=== PATIENT | male | born 1965 | race Caucasian/White ===

== ENCOUNTER 2023-11-29 05:13 | Inpatient (IN) | payer SELFPAY ==
[~2023-11-29] VITALS: Ht 182.9 cm; Wt 105.1 kg
[2023-11-29] VITALS (7 sets, daily range): BP systolic 98–128; BP diastolic 46–68; PULSE 74–85; RESP 12–16; TEMP 96.9–97.1; O2SAT 92–95
[2023-11-29 06:38] LABS: Hematocrit 18.2 % (41.0-53.0); Mean Corpuscular Hemoglobin 41.2 pg (28.0-32.0); Mean Corpuscular Volume 111.6 fL (80.0-100.0); Red Blood Cells 1.63 10^6/uL (4.5-5.90); Red Cell Distribution Width 19.2 % (11.8-14.3); White Blood Cell 7.2 10^3/uL (4.4-10.8)
[2023-11-29 06:41] LABS: Alkaline Phosphatase 111 U/L (46-116); Calcium 8.8 mg/dL (8.7-10.4); Chloride 85 mmol/L (98-107)
[2023-11-29 06:42] LABS: Bilirubin, Total > 35.0 mg/dL (0.2-1.0)
[2023-11-29 06:46] LABS: Mean Corpuscular Hgb Conc. 36.9 g/dL (32.0-36.0)
[2023-11-29 06:46] LABS: Urine Amorphous Crystal FEW /hpf (None Seen); Urine Bacteria FEW /hpf (None Seen); Urine Blood Negative /uL (Negative); Urine Clarity HAZY (Clear); Urine Color Brown (Yellow); Urine Hyaline Cast FEW /lpf (0 - 2); Urine Mucus FEW (None Seen); Urine Protein, UAD Negative (Negative); Urine Specific Gravity 1.012 (1.001-1.035); Urine WBC 3 /hpf (0 - 3); Urine pH 5.5 (5.0-8.0)
[2023-11-29 06:49] LABS: Alanine Aminotransferase 57 U/L (7-40); Albumin 2.9 g/dL (3.2-4.8); Anion Gap 10 (5-15); Aspartate Aminotransferase 54 U/L (13-40); BUN/Creatinine Ratio 26.6 (10.0-20.0); Blood Urea Nitrogen 37 mg/dL (9-23); Carbon Dioxide 21 mmol/L (20-30); Glucose 103 mg/dL (74-106); INR 2.23 (0.9-1.15); Lipase 90 U/L (12-53); Magnesium 2.2 mg/dL (1.6-2.6); Partial Thromboplastin Time 46.7 SEC (24.5-34.5); Prothrombin Time 22.2 sec (9.3-11.8); Total Protein 6.3 g/dL (5.7-8.2)
[2023-11-29 06:53] LABS: Sodium 116 mmol/L (136-145)
[2023-11-29 06:54] LABS: Hemoglobin 6.7 g/dL (13.5-17.5)
[2023-11-29 06:56] LABS: Basophils % (manual) 0 (0.0-2.0); Blast Cells 0; Metamyelocytes % 0; Myelocytes % 0; Promyelocytes % 0; Reactive Lymphocytes 0
[2023-11-29] MEDS: SODIUM CHLORIDE 0.9% 1,000 ML IV ONE (07:00)
[2023-11-29 07:25] LABS: Folate (Folic Acid) 9.98 ng/mL (>5.38)
[2023-11-29 07:38] LABS: Band Neutrophils % (manual) 2; Eosinophils % (manual) 9 (0-7); Lymphocytes % (manual) 9 (10.0-50.0); Monocytes % (manual) 18 (0-12); Platelet Estimate Decreased
[2023-11-29 07:40] LABS: Hypochromia Slight; Macrocytosis Slight
[2023-11-29] MEDS: CIPROFLOXACIN 400MG/200ML 200 ML IV ONE (07:42)
[2023-11-29] MEDS: VANCOMYCIN 1GM/200ML 200 ML IV ONE (07:42)
[2023-11-29] MEDS ORDERED: ONDANSETRON HCL 4 MG/2 ML VIAL IV PRN (09:00)
[2023-11-29] MEDS ORDERED: ACETAMINOPHEN 325 MG TAB PO PRN (09:00)
[2023-11-29] MEDS ORDERED: HYDROmorphone HCL 2 MG/ML VL/or syr IV PRN (09:00)
[2023-11-29] MEDS ORDERED: DOCUSATE SOD 100 MG CAP PO PRN (09:00)
[2023-11-29] MEDS ORDERED: HYDROcodone-ACET 5/325MG TAB PO PRN (09:00)
[2023-11-29 09:26] LABS: Creatinine, Urine 95.56 mg/dL (30.0-125.0)
[2023-11-29 09:29] LABS: Chloride 87 mmol/L (98-107)
[2023-11-29 09:36] LABS: Anion Gap 8 (5-15); Blood Urea Nitrogen 29 mg/dL (9-23); Carbon Dioxide 21 mmol/L (20-30); Glucose 108 mg/dL (74-106)
[2023-11-29 09:41] LABS: Sodium 116 mmol/L (136-145)
[2023-11-29] MEDS: SODIUM CHL 3% 500 ML IV ONE ×2 (10:13→15:30)
[2023-11-29] MEDS: FUROSEMIDE 40 MG/4 ML VIAL IV ONE ×2 (10:39→15:36)
[2023-11-29] MEDS: PANTOPRAZOLE 40 MG/10 ML VIAL INJ IV SCH (10:42)
[2023-11-29] MEDS: THIAMINE HCL 100 MG TAB PO SCH (10:43)
[2023-11-29] MEDS: FOLIC ACID 1 MG TAB PO SCH (10:43)
[2023-11-29] MEDS: predniSONE 20 MG TAB PO SCH (10:43)
[2023-11-29] MEDS: PIPERACILLIN-TAZO 4.5GM 100 ML IV ONE (11:35)
[2023-11-29 13:54] LABS: Calcium 8.5 mg/dL (8.7-10.4)
[2023-11-29 13:57] LABS: Amphetamine Screen, Urine Neg (NEGATIVE); Barbiturate Scree,Urine Neg (NEGATIVE); Benzodiazephine Screen, Urine Neg (NEGATIVE); Cocaine Screen, Urine Neg (NEGATIVE)
[2023-11-29 13:58] LABS: Cannabinoid Screen, Urine Pos (NEGATIVE); Opiate Scree,Urine Neg (NEGATIVE); Phencyclidine Screen, Urine Neg (NEGATIVE)
[2023-11-29 14:04] LABS: Anion Gap 7 (5-15); BUN/Creatinine Ratio 20.5 (10.0-20.0); Blood Urea Nitrogen 27 mg/dL (9-23); Carbon Dioxide 21 mmol/L (20-30); Chloride 88 mmol/L (98-107); Glucose 115 mg/dL (74-106); Potassium 4.1 mmol/L (3.5-5.1)
[2023-11-29 14:11] LABS: Sodium 116 mmol/L (136-145)
[2023-11-29] MEDS: SODIUM CHLOR 0.9% PF (SALINE LOCK) 10ML VIAL/SYR IV SCH (14:28)
[2023-11-29 14:39] LABS: Blood Alcohol < 3.0 mg/dL (<10)
[2023-11-29] MEDS ORDERED: MIDODRINE HCL 10 MG TAB PO SCH (14:45)
[2023-11-29 15:16] LABS: Chloride 89 mmol/L (98-107); Potassium 4.1 mmol/L (3.5-5.1)
[2023-11-29 15:18] LABS: Calcium 8.9 mg/dL (8.5-10.1)
[2023-11-29 15:28] LABS: Anion Gap 7 (5-15); BUN/Creatinine Ratio 19.5 (10.0-20.0); Blood Urea Nitrogen 25 mg/dL (9-23); Carbon Dioxide 21 mmol/L (20-30); Glucose 114 mg/dL (74-106)
[2023-11-29 15:37] LABS: Sodium 117 mmol/L (136-145)
[2023-11-29] MEDS: ALBUMIN 25% 100 ML IV SCH (15:37)
[2023-11-29 18:55] LABS: Basophils # (auto) 0 10 ^3/uL (0-0.2); Eosinophils # (auto) 0.1 10 ^3/uL (0-0.8)
[2023-11-29 18:57] LABS: Basophils % (auto) 0.1 % (0.0-2.0)
[2023-11-29 19:10] LABS: Chloride 88 mmol/L (98-107); Potassium 4.1 mmol/L (3.5-5.1)
[2023-11-29 19:18] LABS: Lymphocytes # (auto) 0.3 10 ^3/uL (0.4-5.4); Neutrophils # (auto) 5.7 10 ^3/uL (1.6-8.6); White Blood Cell 6.4 10^3/uL (4.4-10.8)
[2023-11-29 19:19] LABS: Eosinophils % (auto) 1.2 % (0.0-7.0); Hematocrit 19.1 % (41.0-53.0); Mean Corpuscular Hemoglobin 38.5 pg (28.0-32.0); Mean Corpuscular Volume 105.6 fL (80.0-100.0); Monocytes # (auto) 0.4 10 ^3/uL (0-1.3); Monocytes % (auto) 5.7 % (0.0-12.0); Red Blood Cells 1.81 10^6/uL (4.5-5.90)
[2023-11-29 19:21] LABS: Anion Gap 8 (5-15); BUN/Creatinine Ratio 21.6 (10.0-20.0); Blood Urea Nitrogen 27 mg/dL (9-23); Calcium 8.8 mg/dL (8.7-10.4); Carbon Dioxide 21 mmol/L (20-30); Glucose 114 mg/dL (74-106)
[2023-11-29 19:42] LABS: Mean Corpuscular Hgb Conc. 36.5 g/dL (32.0-36.0); Red Cell Distribution Width 24.3 % (11.8-14.3); Sodium 117 mmol/L (136-145)
[2023-11-29 20:12] LABS: Anisocytosis Moderate; Macrocytosis Moderate; Platelet Estimate Decreased
[2023-11-29] MEDS: phytonadione 10 MG in SODIUM CHL 0.9% 50 ML IV ONE (20:43)
[2023-11-29] MEDS: SODIUM CHL 3% 120 ML IV ONE (21:10)
[2023-11-29 21:39] LABS: Chloride 89 mmol/L (98-107); Potassium 4.1 mmol/L (3.5-5.1)
[2023-11-29 21:57] LABS: Anion Gap 10 (5-15); BUN/Creatinine Ratio 19.4 (10.0-20.0); Blood Urea Nitrogen 26 mg/dL (9-23); Carbon Dioxide 19 mmol/L (20-30); Glucose 135 mg/dL (74-106)
[2023-11-29 22:14] LABS: Sodium 118 mmol/L (136-145)
[2023-11-29] MEDS: methylPREDNISolone SOD SUCC 40 MG/ML VL IV SCH (22:35)
[2023-11-29] MEDS: MIDODRINE HCL 10 MG TAB PO PRN (22:36)
[2023-11-29] MEDS: OCTREOTIDE ACETATE 100 MCG/ML VL SUBCUT SCH (22:36)
[2023-11-30 03:59] LABS: Chloride 89 mmol/L (98-107); Potassium 4.4 mmol/L (3.5-5.1)
[2023-11-30 04:04] LABS: Anion Gap 9 (5-15); Carbon Dioxide 21 mmol/L (20-30)
[2023-11-30 04:15] LABS: BUN/Creatinine Ratio 21.4 (10.0-20.0); Blood Urea Nitrogen 28 mg/dL (9-23); Glucose 138 mg/dL (74-106)
[2023-11-30 04:29] LABS: Sodium 119 mmol/L (136-145)
[2023-11-30 05:36] VITALS: PULSE 81; RESP 17; O2SAT 95
[2023-11-30] MEDS: NOREPINEPHRINE 8 MG/250ML KIT 250 ML IV ONE (06:41)
[2023-11-30] MEDS: NOREPINEPHRINE 8 MG/250ML KIT 250 ML IV SCH (06:54)
[2023-11-30 08:41] LABS: Chloride 91 mmol/L (98-107); Potassium 4.8 mmol/L (3.5-5.1)
[2023-11-30 08:54] LABS: Basophils # (auto) 0 10 ^3/uL (0-0.2); Basophils % (auto) 0.4 % (0.0-2.0); Eosinophils # (auto) 0 10 ^3/uL (0-0.8); Eosinophils % (auto) 0.3 % (0.0-7.0); Hematocrit 19.6 % (41.0-53.0); Lymphocytes # (auto) 0.4 10 ^3/uL (0.4-5.4); Lymphocytes % (auto) 4.5 % (10.0-50.0); Mean Corpuscular Hemoglobin 38.2 pg (28.0-32.0); Mean Corpuscular Hgb Conc. 35.8 g/dL (32.0-36.0); Mean Corpuscular Volume 106.5 fL (80.0-100.0); Monocytes # (auto) 0.4 10 ^3/uL (0-1.3); Monocytes % (auto) 4.9 % (0.0-12.0); Neutrophils # (auto) 7.7 10 ^3/uL (1.6-8.6); Neutrophils % (auto) 89.9 % (37.0-80.0); Nucleated Red Blood Cells % 0.1 %; Red Blood Cells 1.84 10^6/uL (4.5-5.90); Red Cell Distribution Width 24.5 % (11.8-14.3); White Blood Cell 8.5 10^3/uL (4.4-10.8)
[2023-11-30 09:10] LABS: BUN/Creatinine Ratio 19.7 (10.0-20.0); Blood Urea Nitrogen 28 mg/dL (9-23); Calcium 9.1 mg/dL (8.5-10.1); Carbon Dioxide 21 mmol/L (20-30); Glucose 128 mg/dL (74-106)
[2023-11-30 09:12] LABS: Anion Gap 7 (5-15); Sodium 119 mmol/L (136-145)
[2023-11-30 09:44] LABS: Anisocytosis Slight; Macrocytosis Moderate; Platelet Estimate Decreased
[2023-11-30] MEDS: FOLIC ACID 1 MG TAB PO SCH (10:00)
[2023-11-30] MEDS: THIAMINE HCL 100 MG TAB PO SCH (10:00)
[2023-11-30 11:07] LABS: Base Excess -2.7 mmol/L (-2.0-2.0)
[2023-11-30] MEDS: ALBUMIN 25% 100 ML IV ONE (11:08)
[2023-11-30] MEDS: SODIUM CHL 3% 200 ML IV ONE (16:52)
[2023-11-30] MEDS: FUROSEMIDE 20 MG/2 ML VIAL IV ONE (17:06)
[2023-11-30] MEDS: LACTULOSE 20Gm/30ML SOLN PO SCH (18:00)
[2023-11-30 19:30] VITALS: PULSE 94; RESP 16; O2SAT 95
[2023-11-30] MEDS: LIDOCAINE 1% (LOCAL ANESTH.) PF 5ml SDV ID ONE (20:00)
[2023-11-30] MEDS: SODIUM CHLOR 0.9% PF (SALINE LOCK) 10ML VIAL/SYR IV SCH (21:43)
[2023-11-30 22:35] VITALS: BP 115/50; PULSE 84; RESP 18; TEMP 97.9
[2023-11-30 23:05] VITALS: BP 115/50; PULSE 86; RESP 18; TEMP 97.8
[2023-12-01] VITALS (9 sets, daily range): BP systolic 102–137; BP diastolic 33–55; PULSE 80–94; RESP 12–16; TEMP 97.4–98.1; O2SAT 95–97
[2023-12-01 05:23] LABS: Basophils # (auto) 0 10 ^3/uL (0-0.2); Basophils % (auto) 0.1 % (0.0-2.0); Eosinophils # (auto) 0 10 ^3/uL (0-0.8); Lymphocytes # (auto) 0.4 10 ^3/uL (0.4-5.4); Monocytes # (auto) 1.9 10 ^3/uL (0-1.3); Nucleated Red Blood Cells % 0.2 %
[2023-12-01 05:26] LABS: Eosinophils % (auto) 0.1 % (0.0-7.0); Hematocrit 19.1 % (41.0-53.0); Lymphocytes % (auto) 2.7 % (10.0-50.0); Mean Corpuscular Hemoglobin 38.2 pg (28.0-32.0); Mean Corpuscular Hgb Conc. 36.2 g/dL (32.0-36.0); Mean Corpuscular Volume 105.7 fL (80.0-100.0); Monocytes % (auto) 14.1 % (0.0-12.0); Neutrophils # (auto) 11.1 10 ^3/uL (1.6-8.6); Red Blood Cells 1.81 10^6/uL (4.5-5.90); White Blood Cell 13.3 10^3/uL (4.4-10.8)
[2023-12-01 05:32] LABS: Alkaline Phosphatase 84 U/L (46-116); Calcium 8.2 mg/dL (8.7-10.4); Chloride 96 mmol/L (98-107); Potassium 4.7 mmol/L (3.5-5.1); Sodium 124 mmol/L (136-145)
[2023-12-01 05:43] LABS: Bilirubin, Total 36.1 mg/dL (0.2-1.0)
[2023-12-01 05:57] LABS: Alanine Aminotransferase 47 U/L (7-40); Albumin 3.1 g/dL (3.2-4.8); Anion Gap 8 (5-15); Aspartate Aminotransferase 49 U/L (13-40); BUN/Creatinine Ratio 21.5 (10.0-20.0); Blood Urea Nitrogen 35 mg/dL (9-23); Carbon Dioxide 20 mmol/L (20-30); Glucose 153 mg/dL (74-106); Red Cell Distribution Width 26.9 % (11.8-14.3); Total Protein 6.1 g/dL (5.7-8.2)
[2023-12-01 05:58] LABS: Hemoglobin 6.9 g/dL (13.5-17.5)
[2023-12-01 08:30] LABS: Platelet Estimate Decreased
[2023-12-01 08:31] LABS: Anisocytosis Moderate
[2023-12-01] MEDS: DOXYCYCLINE 100 MG TAB/CAP PO SCH (10:39)
[2023-12-01] MEDS: ALBUMIN 25% 100 ML IV ONE (10:40)
[2023-12-01] MEDS: FUROSEMIDE 100 MG/10ML VIAL IV ONE (12:12)
[2023-12-01] MEDS: PIPERACILLIN-TAZOB 3.375GM 100 ML IV SCH (15:47)
[2023-12-01 20:16] LABS: Hematocrit 22.2 % (41.0-53.0); Hemoglobin 7.8 g/dL (13.5-17.5)
[2023-12-02 04:49] LABS: Basophils # (auto) 0 10 ^3/uL (0-0.2); Basophils % (auto) 0.1 % (0.0-2.0); Eosinophils # (auto) 0 10 ^3/uL (0-0.8); Hematocrit 22.1 % (41.0-53.0); Hemoglobin 7.8 g/dL (13.5-17.5); Lymphocytes # (auto) 0.1 10 ^3/uL (0.4-5.4); Lymphocytes % (auto) 0.9 % (10.0-50.0); Mean Corpuscular Hemoglobin 35.5 pg (28.0-32.0); Mean Corpuscular Hgb Conc. 35.4 g/dL (32.0-36.0); Mean Corpuscular Volume 100.3 fL (80.0-100.0); Monocytes # (auto) 1.4 10 ^3/uL (0-1.3); Monocytes % (auto) 10.6 % (0.0-12.0); Neutrophils # (auto) 11.6 10 ^3/uL (1.6-8.6); Neutrophils % (auto) 88.4 % (37.0-80.0); Red Cell Distribution Width 25.3 % (11.8-14.3); White Blood Cell 13.1 10^3/uL (4.4-10.8)
[2023-12-02 05:09] LABS: Alkaline Phosphatase 84 U/L (46-116); Chloride 94 mmol/L (98-107); Potassium 4.3 mmol/L (3.5-5.1); Sodium 123 mmol/L (136-145)
[2023-12-02 05:20] LABS: Bilirubin, Total 38.1 mg/dL (0.2-1.0)
[2023-12-02 05:47] LABS: Alanine Aminotransferase 52 U/L (7-40); Albumin 3.2 g/dL (3.2-4.8); Anion Gap 7 (5-15); Aspartate Aminotransferase 58 U/L (13-40); BUN/Creatinine Ratio 23.1 (10.0-20.0); Blood Urea Nitrogen 40 mg/dL (9-23); Calcium 8.5 mg/dL (8.7-10.4); Carbon Dioxide 22 mmol/L (20-30); Glucose 145 mg/dL (74-106); Total Protein 6.2 g/dL (5.7-8.2)
[2023-12-02 07:45] VITALS: PULSE 78; RESP 16; O2SAT 94
[2023-12-02 09:25] LABS: Urine Bacteria NONE SEEN /hpf (None Seen); Urine Blood 3+ /uL (Negative); Urine Clarity HAZY (Clear); Urine Color Brown (Yellow); Urine Protein, UAD 1+ (Negative); Urine WBC 326 /hpf (0 - 3); Urine WBC Clumps PRESENT /hpf (None Seen); Urine pH 5.5 (5.0-8.0)
[2023-12-02 19:30] VITALS: PULSE 78; RESP 16; O2SAT 94
[2023-12-02] MEDS: phytonadione 10 MG in SODIUM CHL 0.9% 50 ML IV ONE (21:34)
[2023-12-02] MEDS: LACTULOSE 20Gm/30ML SOLN PO SCH (21:34)
[2023-12-02] MEDS: phytonadione 1 ML ONE (21:35)
[2023-12-03 04:42] VITALS: BP 118/43; PULSE 84; RESP 14; TEMP 97.6; O2SAT 95
[2023-12-03] MEDS: ALBUTEROL SULF 2.5 MG/0.5ML(0.5%) NEB SOLN NEB PRN (05:47)
[2023-12-03] MEDS: IPRATROPIUM BROM 0.5 MG/2.5ML INH SOL NEB PRN (05:48)
[2023-12-03 05:49] VITALS: PULSE 82; RESP 18; O2SAT 95
[2023-12-03 05:51] VITALS: PULSE 82; RESP 18; O2SAT 95
[2023-12-03 05:53] LABS: Chloride 95 mmol/L (98-107); Potassium 4.3 mmol/L (3.5-5.1); Sodium 125 mmol/L (136-145)
[2023-12-03 06:19] LABS: Basophils # (auto) 0 10 ^3/uL (0-0.2); Basophils % (auto) 0.1 % (0.0-2.0); Eosinophils # (auto) 0 10 ^3/uL (0-0.8); Hemoglobin 7.8 g/dL (13.5-17.5); Lymphocytes # (auto) 0.1 10 ^3/uL (0.4-5.4); Lymphocytes % (auto) 0.9 % (10.0-50.0)
[2023-12-03 06:22] LABS: Hematocrit 21.8 % (41.0-53.0); Mean Corpuscular Hemoglobin 36.2 pg (28.0-32.0); Mean Corpuscular Hgb Conc. 35.8 g/dL (32.0-36.0); Mean Corpuscular Volume 101.3 fL (80.0-100.0); Nucleated Red Blood Cells % 0.1 %; Red Blood Cells 2.16 10^6/uL (4.5-5.90); White Blood Cell 15.1 10^3/uL (4.4-10.8)
[2023-12-03 06:37] LABS: Red Cell Distribution Width 25.9 % (11.8-14.3)
[2023-12-03 07:09] LABS: Anion Gap 8 (5-15); BUN/Creatinine Ratio 28.8 (10.0-20.0); Blood Urea Nitrogen 45 mg/dL (9-23); Calcium 8.7 mg/dL (8.7-10.4); Carbon Dioxide 22 mmol/L (20-30); Glucose 134 mg/dL (74-106)
[2023-12-03 07:46] VITALS: PULSE 84; RESP 15; O2SAT 95
[2023-12-03 09:26] LABS: Target Cell FEW
[2023-12-03 09:27] LABS: Anisocytosis Moderate
[2023-12-03 09:37] LABS: Platelet Estimate Decrea
[2023-12-03] MEDS: methylPREDNISolone SOD SUCC 40 MG/ML VL IV SCH (09:54)
[2023-12-03] MEDS: FUROSEMIDE 100 MG/10ML VIAL IV ONE (10:09)
[2023-12-03 18:10] VITALS: PULSE 85; RESP 20; O2SAT 94
[2023-12-04] VITALS (76 sets, daily range): BP systolic 86–165; BP diastolic 30–99; PULSE 82–104; RESP 10–91; TEMP 94.8–97.5; O2SAT 78–99
[2023-12-04 05:06] LABS: Basophils # (auto) 0 10 ^3/uL (0-0.2); Eosinophils # (auto) 0 10 ^3/uL (0-0.8); Monocytes # (auto) 2.5 10 ^3/uL (0-1.3); Neutrophils % (auto) 84.3 % (37.0-80.0)
[2023-12-04 05:10] LABS: Basophils % (auto) 0.1 % (0.0-2.0); Eosinophils % (auto) 0.1 % (0.0-7.0); Lymphocytes # (auto) 0.1 10 ^3/uL (0.4-5.4); Lymphocytes % (auto) 0.8 % (10.0-50.0); Mean Corpuscular Hemoglobin 36.5 pg (28.0-32.0); Mean Corpuscular Hgb Conc. 35.4 g/dL (32.0-36.0); Monocytes % (auto) 14.7 % (0.0-12.0); Neutrophils # (auto) 14.2 10 ^3/uL (1.6-8.6); Nucleated Red Blood Cells % 0.1 %; Red Blood Cells 1.85 10^6/uL (4.5-5.90); White Blood Cell 16.8 10^3/uL (4.4-10.8)
[2023-12-04 05:13] LABS: Red Cell Distribution Width 25.4 % (11.8-14.3)
[2023-12-04 05:17] LABS: Hemoglobin 6.7 g/dL (13.5-17.5)
[2023-12-04 05:29] LABS: Chloride 99 mmol/L (98-107); Potassium 4.2 mmol/L (3.5-5.1); Sodium 129 mmol/L (136-145)
[2023-12-04 05:45] LABS: Anion Gap 8 (5-15); BUN/Creatinine Ratio 36.5 (10.0-20.0); Blood Urea Nitrogen 50 mg/dL (9-23); Calcium 7.8 mg/dL (8.7-10.4); Carbon Dioxide 22 mmol/L (20-30); Glucose 131 mg/dL (74-106)
[2023-12-04 06:00] LABS: INR 3.27 (0.9-1.15); Prothrombin Time 31.8 sec (9.3-11.8)
[2023-12-04 06:02] LABS: Partial Thromboplastin Time 76.6 SEC (24.5-34.5)
[2023-12-04 07:05] LABS: Anisocytosis Moderate; Macrocytosis Moderate; Platelet Estimate Decreased; Target Cell FEW
[2023-12-04] MEDS: VASOPRESSIN 20 UNITS in SODIUM CHL 0.9% 99 ML IV SCH (10:25)
[2023-12-04] MEDS: CEFEPIME 2GM/50ML NS 50 ML IV SCH (11:09)
[2023-12-04] MEDS: DOPamine 1600MCG/ML D5W 250 ML IV SCH (11:45)
[2023-12-04] MEDS: FUROSEMIDE 40 MG/4 ML VIAL IV ONE (13:54)
[2023-12-05] VITALS (105 sets, daily range): BP systolic 79–160; BP diastolic 24–76; PULSE 84–114; RESP 10–31; TEMP 94.8–98.4; O2SAT 84–100
[2023-12-05 04:20] LABS: Basophils # (auto) 0 10 ^3/uL (0-0.2); Basophils % (auto) 0.2 % (0.0-2.0); Eosinophils # (auto) 0 10 ^3/uL (0-0.8); Hemoglobin 7.3 g/dL (13.5-17.5); Monocytes # (auto) 1.7 10 ^3/uL (0-1.3); Nucleated Red Blood Cells % 0.1 %
[2023-12-05 04:23] LABS: Hematocrit 20.5 % (41.0-53.0); Lymphocytes # (auto) 0.2 10 ^3/uL (0.4-5.4); Mean Corpuscular Hgb Conc. 35.5 g/dL (32.0-36.0); Mean Corpuscular Volume 101.2 fL (80.0-100.0); Monocytes % (auto) 10.6 % (0.0-12.0); Neutrophils % (auto) 88.2 % (37.0-80.0); Red Blood Cells 2.02 10^6/uL (4.5-5.90); White Blood Cell 15.9 10^3/uL (4.4-10.8)
[2023-12-05 04:32] LABS: Red Cell Distribution Width 24.1 % (11.8-14.3)
[2023-12-05 04:35] LABS: INR 2.66 (0.9-1.15); Partial Thromboplastin Time 55.3 SEC (24.5-34.5); Prothrombin Time 26.2 sec (9.3-11.8)
[2023-12-05 05:12] LABS: Platelet Estimate Decreased
[2023-12-05 05:13] LABS: Anisocytosis Moderate
[2023-12-05 06:21] LABS: Chloride 98 mmol/L (98-107); Potassium 4.7 mmol/L (3.5-5.1); Sodium 129 mmol/L (136-145)
[2023-12-05 06:30] LABS: Alkaline Phosphatase 65 U/L (46-116)
[2023-12-05 06:55] LABS: Alanine Aminotransferase 65 U/L (7-40); Albumin 2.9 g/dL (3.2-4.8); Anion Gap 8 (5-15); Aspartate Aminotransferase 107 U/L (13-40); BUN/Creatinine Ratio 41.1 (10.0-20.0); Bilirubin, Total 43.1 mg/dL (0.2-1.0); Blood Urea Nitrogen 67 mg/dL (9-23); Calcium 8.5 mg/dL (8.7-10.4); Carbon Dioxide 23 mmol/L (20-30); Glucose 144 mg/dL (74-106); Phosphorus 4.9 mg/dL (2.4-5.1); Total Protein 5.5 g/dL (5.7-8.2)
[2023-12-05 08:06] LABS: Base Excess -1.1 mmol/L (-2.0-2.0)
[2023-12-05] MEDS: FUROSEMIDE 40 MG/4 ML VIAL ONE (18:12)
[2023-12-05] MEDS: FUROSEMIDE 40 MG/4 ML VIAL IV ONE (18:44)
[2023-12-05] MEDS: VASOPRESSIN 20 UNITS in SODIUM CHL 0.9% 99 ML IV SCH (18:44)
[2023-12-05] MEDS: ETOMIDATE (2MG/ML) 20ML VIAL IV ONE ×2 (19:27→19:34)
[2023-12-05] MEDS: SUCCINYLCHOLINE CHLORIDE 20 MG/ML 10ML VIAL IV ONE ×2 (19:35→20:20)
[2023-12-05] MEDS: fentaNYL Drip 2500mCg/250mlNS 250 ML IV ONE (19:41)
[2023-12-05] MEDS: MIDAZOLAM DRIP 50 mg/50mL 50 ML IV ONE (19:41)
[2023-12-05] MEDS: fentaNYL Drip 2500mCg/250mlNS 250 ML IV SCH (19:45)
[2023-12-05] MEDS: MIDAZOLAM DRIP 50 mg/50mL 50 ML IV SCH (19:45)
[2023-12-05] MEDS: ROCURONIUM 10MG/ML 10ML VIAL IV ONE (20:20)
[2023-12-05 21:15] LABS: Base Excess -5.4 mmol/L (-2.0-2.0)
[2023-12-05] MEDS: FUROSEMIDE 20 MG/2 ML VIAL IV ONE (21:20)
[2023-12-05] MEDS: methylPREDNISolone SOD SUCC 40 MG/ML VL IV SCH (21:26)
[2023-12-06] VITALS (106 sets, daily range): BP systolic 57–140; BP diastolic 15–63; PULSE 92–110; RESP 10–27; TEMP 97.6–98.9; O2SAT 85–97
[2023-12-06] MEDS: PHENYLEPHRINE IV 250 ML IV SCH (01:04)
[2023-12-06 04:33] LABS: Hemoglobin 7.5 g/dL (13.5-17.5)
[2023-12-06 04:36] LABS: Hematocrit 22.6 % (41.0-53.0); Mean Corpuscular Hemoglobin 36.1 pg (28.0-32.0); Mean Corpuscular Hgb Conc. 33.2 g/dL (32.0-36.0); Mean Corpuscular Volume 108.9 fL (80.0-100.0); Red Blood Cells 2.07 10^6/uL (4.5-5.90); White Blood Cell 27.8 10^3/uL (4.4-10.8)
[2023-12-06 04:41] LABS: Red Cell Distribution Width 25.5 % (11.8-14.3)
[2023-12-06 04:43] LABS: Basophils % (manual) 0 (0.0-2.0); Blast Cells 0; Eosinophils % (manual) 0 (0-7); Metamyelocytes % 0; Myelocytes % 0; Promyelocytes % 0; Reactive Lymphocytes 0
[2023-12-06 05:06] LABS: Alkaline Phosphatase 72 U/L (46-116); Chloride 100 mmol/L (98-107); Sodium 130 mmol/L (136-145)
[2023-12-06 05:13] LABS: Alanine Aminotransferase 79 U/L (7-40); Albumin 2.9 g/dL (3.2-4.8); Anion Gap 11 (5-15); Aspartate Aminotransferase 142 U/L (13-40); BUN/Creatinine Ratio 34.4 (10.0-20.0); Calcium 8.5 mg/dL (8.7-10.4); Carbon Dioxide 19 mmol/L (20-30); Glucose 112 mg/dL (74-106); Total Protein 5.7 g/dL (5.7-8.2)
[2023-12-06 05:19] LABS: Bilirubin, Total 44.2 mg/dL (0.2-1.0)
[2023-12-06 06:07] LABS: Band Neutrophils % (manual) 5; Lymphocytes % (manual) 5 (10.0-50.0); Monocytes % (manual) 4 (0-12)
[2023-12-06 06:08] LABS: Anisocytosis Slight; Platelet Estimate Decreased
[2023-12-06 06:09] LABS: Macrocytosis Slight
[2023-12-06 06:25] LABS: Blood Urea Nitrogen 77 mg/dL (9-23)
[2023-12-06 06:27] LABS: Potassium 5.9 mmol/L (3.5-5.1)
[2023-12-06] MEDS: SODIUM ZIRCONIUM CYCL 10 GM PAK PO ONE ×2 (06:51→13:38)
[2023-12-06] MEDS: ALBUMIN 5% 250 ML IV ONE (06:52)
[2023-12-06 07:20] LABS: Base Excess -8.5 mmol/L (-2.0-2.0)
[2023-12-06] MEDS: PHENYLEPHRINE INJ 80 MG in SODIUM CHL 0.9% 242 ML IV SCH (09:00)
[2023-12-06] MEDS: NOREPINEPHRINE BITARTRATE 32 MG in SODIUM CHL 0.9% 218 ML IV SCH (09:00)
[2023-12-06] MEDS: NOREPINEPHRINE 8 MG/250ML KIT 250 ML IV ONE (10:08)
[2023-12-06] MEDS: PHENYLEPHRINE IV 250 ML IV ONE (10:08)
[2023-12-06] MEDS: EPINEPHrine HCL INJECTION 16 MG in D5W 5% 234 ML IV SCH (10:20)
[2023-12-06] MEDS ORDERED: SODIUM BICARBONATE 50ML VIAL 100 ML in SOD CHL 0.45% 1,000 ML IV SCH (11:45)
[2023-12-06] MEDS: CALCIUM GLUC 1,000mg/50ml-NS 50 ML IV ONE (13:38)
[2023-12-06] MEDS: InsuLIN REG 1unit/0.01ml Soln (100units/ml) IV ONE (13:39)
[2023-12-06] MEDS: DEXTROSE (50%) 50ML SYRG IV ONE (13:39)
[2023-12-06 16:17] LABS: Basophils # (auto) 0.1 10 ^3/uL (0-0.2); Basophils % (auto) 0.3 % (0.0-2.0); Eosinophils # (auto) 0 10 ^3/uL (0-0.8); Hematocrit 18.2 % (41.0-53.0); Lymphocytes # (auto) 0.4 10 ^3/uL (0.4-5.4); Lymphocytes % (auto) 1.8 % (10.0-50.0); Mean Corpuscular Hemoglobin 35.7 pg (28.0-32.0); Mean Corpuscular Hgb Conc. 33.1 g/dL (32.0-36.0); Mean Corpuscular Volume 107.6 fL (80.0-100.0); Monocytes # (auto) 2.2 10 ^3/uL (0-1.3); Monocytes % (auto) 10.5 % (0.0-12.0); Neutrophils # (auto) 17.9 10 ^3/uL (1.6-8.6); Neutrophils % (auto) 87.4 % (37.0-80.0); Nucleated Red Blood Cells % 1.8 %; Red Blood Cells 1.69 10^6/uL (4.5-5.90); White Blood Cell 20.5 10^3/uL (4.4-10.8)
[2023-12-06 16:21] LABS: Red Cell Distribution Width 25.9 % (11.8-14.3)
[2023-12-06 16:37] LABS: Alkaline Phosphatase 63 U/L (46-116); Chloride 102 mmol/L (98-107); Sodium 133 mmol/L (136-145)
[2023-12-06] MEDS: SODIUM BICARBONATE 50ML VIAL 100 ML in SOD CHL 0.45% 1,000 ML IV SCH (16:44)
[2023-12-06] MEDS: BUMETANIDE INJECTION 12.5 MG in GIVE UN-DILUTED 0 ML IV SCH (16:46)
[2023-12-06 16:49] LABS: Bilirubin, Total 36.7 mg/dL (0.2-1.0)
[2023-12-06 16:58] LABS: Alanine Aminotransferase 261 U/L (7-40); Albumin 2.6 g/dL (3.2-4.8); Anion Gap 13 (5-15); Aspartate Aminotransferase 712 U/L (13-40); BUN/Creatinine Ratio 27.9 (10.0-20.0); Carbon Dioxide 18 mmol/L (20-30); Glucose 80 mg/dL (74-106); Total Protein 4.9 g/dL (5.7-8.2)
[2023-12-06 17:21] LABS: Blood Urea Nitrogen 88 mg/dL (9-23); Potassium 5.6 mmol/L (3.5-5.1)
[2023-12-06 19:10] LABS: Platelet Estimate Decreased
[2023-12-06 19:11] LABS: Anisocytosis Moderate; Macrocytosis Moderate
[2023-12-06] MEDS: DOPamine 1600MCG/ML D5W 250 ML IV SCH (20:34)
[2023-12-06 21:43] LABS: Base Excess -12.2 mmol/L (-2.0-2.0)
[2023-12-06] MEDS: SODIUM BICARBONATE 8.4 % INJ 50ML VIAL IV ONE (22:54)
[2023-12-07] VITALS (36 sets, daily range): BP systolic 58–104; BP diastolic 15–49; PULSE 77–101; RESP 20–28; TEMP 97.6–98.6; O2SAT 40–90
[2023-12-07] MEDS: PHENYLEPHRINE IV 250 ML IV ONE (01:26)
[2023-12-07] MEDS: PHENYLEPHRINE HCL 10 MG/ML VL ONE (01:26)
[2023-12-07] MEDS: DEXTROSE (50%) 50ML SYRG IV ONE ×2 (01:41→07:39)
[2023-12-07] MEDS: DEXTROSE 50% SYRINGE 50 ML IV ONE (01:43)
[2023-12-07 04:05] LABS: Hematocrit 19.6 % (41.0-53.0); Mean Corpuscular Hemoglobin 35.3 pg (28.0-32.0); Mean Corpuscular Hgb Conc. 33.6 g/dL (32.0-36.0); Mean Corpuscular Volume 105.1 fL (80.0-100.0); Red Blood Cells 1.87 10^6/uL (4.5-5.90); White Blood Cell 16.8 10^3/uL (4.4-10.8)
[2023-12-07 04:16] LABS: Red Cell Distribution Width 22.2 % (11.8-14.3)
[2023-12-07 04:18] LABS: Hemoglobin 6.6 g/dL (13.5-17.5)
[2023-12-07 04:19] LABS: Basophils % (manual) 0 (0.0-2.0); Blast Cells 0; Eosinophils % (manual) 0 (0-7); Metamyelocytes % 0; Myelocytes % 0; Promyelocytes % 0; Reactive Lymphocytes 0
[2023-12-07 04:37] LABS: Chloride 102 mmol/L (98-107); Sodium 132 mmol/L (136-145)
[2023-12-07 04:41] LABS: Calcium 7.6 mg/dL (8.7-10.4)
[2023-12-07 04:46] LABS: Alkaline Phosphatase 78 U/L (46-116)
[2023-12-07 04:58] LABS: Albumin 2.3 g/dL (3.2-4.8); BUN/Creatinine Ratio 19.8 (10.0-20.0); Glucose 105 mg/dL (74-106); Total Protein 4.4 g/dL (5.7-8.2)
[2023-12-07 05:21] LABS: Alanine Aminotransferase 2035 U/L (7-40); Aspartate Aminotransferase > 6000 U/L (13-40); Blood Urea Nitrogen 77 mg/dL (9-23)
[2023-12-07 05:22] LABS: Potassium 5.9 mmol/L (3.5-5.1)
[2023-12-07 05:40] LABS: Anion Gap 12 (5-15); Carbon Dioxide 18 mmol/L (20-30)
[2023-12-07] MEDS: SODIUM ZIRCONIUM CYCL 10 GM PAK PO ONE (06:45)
[2023-12-07 06:58] LABS: Band Neutrophils % (manual) 5; Lymphocytes % (manual) 12 (10.0-50.0); Monocytes % (manual) 2 (0-12)
[2023-12-07 07:00] LABS: Platelet Estimate Decreased
[2023-12-07] MEDS: SODIUM BICARBONATE 8.4% INJ 50ML SYRINGE IV ONE (07:19)
[2023-12-07] MEDS: CALCIUM GLUC 1,000mg/50ml-NS 50 ML IV ONE (07:20)
[2023-12-07] MEDS: InsuLIN REG 1unit/0.01ml Soln (100units/ml) IV ONE (07:41)
[2023-12-07] MEDS ORDERED: DOPamine 1600mCg/ml 400MG/250ml NSorD5 KIT/BAG IV ONE (10:55)
[2023-12-07] MEDS ORDERED: D5W 5% 100 ML BAG IV ONE (10:55)
[2023-12-07] MEDS ORDERED: CALCIUM CHLOR(10%) 100MG/ML 10ML SYRINGE IV ONE (10:55)
== END 2023-12-07 10:56 | DRG 871 ==
LOC: ER 05:13 → EDBD 05:13 → TELE 09:06 → ICU WEST 12-04 05:05 → TELE 12-04 05:11
PROVIDERS: ADMIT Internal Medicine; ATTEND Nurse Practitioner Acute Care
PROC: 30233N1 Transfusion of Nonautologous Red Blood Cells into Peripheral Vein, Percutaneous Approach (ICD-10-PCS; 2023-11-29)
PROC: 02HV33Z Insertion of Infusion Device into Superior Vena Cava, Percutaneous Approach (ICD-10-PCS; 2023-11-30)
PROC: 30233P1 Transfusion of Nonautologous Frozen Red Cells into Peripheral Vein, Percutaneous Approach (ICD-10-PCS; 2023-12-04)
PROC: 5A1945Z Respiratory Ventilation, 24-96 Consecutive Hours (ICD-10-PCS; 2023-12-05)
PROC: 0BH17EZ Insertion of Endotracheal Airway into Trachea, Via Natural or Artificial Opening (ICD-10-PCS; 2023-12-05)
PROC: 30233R1 Transfusion of Nonautologous Platelets into Peripheral Vein, Percutaneous Approach (ICD-10-PCS; 2023-12-06)
PROC: 5A12012 Performance of Cardiac Output, Single, Manual (ICD-10-PCS; principal; 2023-12-07)
DX: A41.9 Sepsis, unspecified organism (principal); G93.41 Metabolic encephalopathy; J18.9 Pneumonia, unspecified organism; K76.7 Hepatorenal syndrome; N17.0 Acute kidney failure with tubular necrosis; R65.21 Severe sepsis with septic shock; J80 Acute respiratory distress syndrome; E87.1 Hypo-osmolality and hyponatremia; J90 Pleural effusion, not elsewhere classified; I50.30 Unspecified diastolic (congestive) heart failure; N39.0 Urinary tract infection, site not specified; D68.4 Acquired coagulation factor deficiency; K74.60 Unspecified cirrhosis of liver; D53.9 Nutritional anemia, unspecified; D69.6 Thrombocytopenia, unspecified; R59.0 Localized enlarged lymph nodes; K72.10 Chronic hepatic failure without coma; F10.20 Alcohol dependence, uncomplicated; I48.91 Unspecified atrial fibrillation; I46.9 Cardiac arrest, cause unspecified; K76.82 Hepatic encephalopathy; R31.9 Hematuria, unspecified; E87.5 Hyperkalemia
CPT/HCPCS: 36415; 36430; 36569; 36600; 70450; 71045; 71250; 72125; 74176; 80048; 80053; 80307; 80320; 81001; 82140; 82570; 82607; 82746; 82805; 82962; 83010; 83615; 83690; 83735; 83880; 83930; 83935; 84100; 84295; 84300; 84484; 85007; 85014; 85018; 85025; 85027; 85045; 85610; 85730; 86850; 86880; 86900; 86901; 86920; 87040; 87070; 87081; 87086; 87205; 93005; 93306; 94002; 94003; 94640; 96361; 96365; 96367; 96375; 99291; C9113; G0378; J0171; J0330; J0692; J1815; J2250; J2543; J3430; J7060; P9047